=== PATIENT | female | born 1975 | race Caucasian/White ===

== ENCOUNTER 2018-01-21 20:31 | Observation (INO) | payer MEDICARE, MEDICAID ==
[~2018-01-21] VITALS: Ht 152.4 cm; Wt 73.0 kg
[2018-01-21 21:39] LABS: BASOPHILS 0.3 % (0-2); EOSINOPHILS 3.2 % (0-7); HEMATOCRIT 39.3 % (36.0-48.0); HEMOGLOBIN 13.6 g/dL (12-16); IMMATURE GRANULOCYTES 0.2 % (0-5); LYMPHOCYTES 27.8 % (15-50); MCH 27.6 pg (26.0-34.0); MCHC 34.6 g/dL (31.0-37.0); MCV 79.7 fL (80.0-100.0); MEAN PLATELET VOLUME 9.9 fL (7.4-10.4); MONOCYTES 5.4 % (2-11); NEUTROPHILS 63.1 % (40-80); PLATELET COUNT 188 10x3/uL (130-400); RBC 4.93 10x6/uL (4.00-5.40); RDW 14.5 % (11.5-14.5); WBC 6.7 10x3/uL (4.8-10.8)
[2018-01-21 21:56] LABS: ALBUMIN 3.6 g/dL (3.4-5.0); ALKALINE PHOSPHATASE 78 U/L (46-116); ALT (SGPT) 23 U/L (10-68); BILIRUBIN - TOTAL 0.21 mg/dL (0.2-1.3); CALC OSMOLALITY 276 mosm/kg (275-300); CALCIUM 9.4 mg/dL (8.5-10.1); CARBON DIOXIDE 25.1 mmol/L (21.0-32.0); CHLORIDE - SERUM 105 mmol/L (98-107); CREATININE - SERUM 0.8 mg/dL (0.6-1.3); GLUCOSE 100 mg/dL (74-106); POTASSIUM - SERUM 3.9 mmol/L (3.5-5.1); PROTEIN - SERUM 7.7 g/dL (6.4-8.2); SODIUM 139 mmol/L (136-145); UREA NITROGEN 11 mg/dL (7-18); eGFR NON AFRICAN AMERICAN 84 mL/min (90-120)
[2018-01-22] MEDS ORDERED: XANAX1 MG PO (04:19)
[2018-01-22] MEDS ORDERED: EFFEXOR25 MG PO (04:20)
[2018-01-22] MEDS ORDERED: DESERYL100 MG PO (04:20)
[2018-01-22] MEDS ORDERED: ADDERALL 10 MG10 MG PO (04:21)
[2018-01-22] MEDS ORDERED: CYCLOBENZAPRINE10 MG PO (04:21)
[2018-01-22] MEDS ORDERED: NEURONTIN 400400 MG PO (04:34)
[2018-01-22 04:55] VITALS: BP 103/63; Ht 152.4 cm; Wt 73.0 kg
[2018-01-22 05:50] VITALS: BP 103/63
[2018-01-22 07:29] LABS: CALC OSMOLALITY 278 mosm/kg (275-300); CALCIUM 8.7 mg/dL (8.5-10.1); CARBON DIOXIDE 23.2 mmol/L (21.0-32.0); CHLORIDE - SERUM 106 mmol/L (98-107); CREATININE - SERUM 0.8 mg/dL (0.6-1.3); GLUCOSE 93 mg/dL (74-106); POTASSIUM - SERUM 4.3 mmol/L (3.5-5.1); SODIUM 140 mmol/L (136-145); T4 THYROXIN - FREE 1.09 ng/dL (0.76-1.46); THYROID STIMULATING HORMONE 3.03 uIU/mL (0.36-3.74); UREA NITROGEN 12 mg/dL (7-18); eGFR NON AFRICAN AMERICAN 84 mL/min (90-120)
[2018-01-22 07:59] LABS: BASOPHILS 0.3 % (0-2); EOSINOPHILS 4.2 % (0-7); HEMATOCRIT 35.3 % (36.0-48.0); HEMOGLOBIN 12.2 g/dL (12-16); IMMATURE GRANULOCYTES 0.8 % (0-5); LYMPHOCYTES 35.7 % (15-50); MCH 27.4 pg (26.0-34.0); MCHC 34.6 g/dL (31.0-37.0); MCV 79.3 fL (80.0-100.0); MEAN PLATELET VOLUME 9.9 fL (7.4-10.4); MONOCYTES 7.2 % (2-11); NEUTROPHILS 51.8 % (40-80); PLATELET COUNT 161 10x3/uL (130-400); RBC 4.45 10x6/uL (4.00-5.40); RDW 14.5 % (11.5-14.5)
[2018-01-22 08:25] VITALS: BP 84/50
[2018-01-22 15:53] VITALS: BP 116/75
[2018-01-22] MEDS ORDERED: BACTRIM DS TABL1 TAB PO (18:07)
== END 2018-01-22 18:34 | disposition home or self-care (01) ==
LOC: D.ER 20:31 → D.EDHOLD 01-22 02:50 → OBSVTIME 01-22 02:50 → D.M2 01-22 03:22
PROVIDERS: Family Medicine
DX: R55 Syncope and collapse (principal); G62.9 Polyneuropathy, unspecified; K21.9 Gastro-esophageal reflux disease without esophagitis; E78.5 Hyperlipidemia, unspecified; E66.9 Obesity, unspecified; J32.9 Chronic sinusitis, unspecified; F41.9 Anxiety disorder, unspecified

== ENCOUNTER 2018-05-05 11:33 | Emergency (ER) | payer MEDICARE, MEDICAID ==
[~2018-05-05] VITALS: Ht 152.4 cm; Wt 72.7 kg
[~2018-05-05 11:33] MED LIST: ADDERALL 10 MG10 MG PO; BACTRIM DS TABL1 TAB PO; CYCLOBENZAPRINE10 MG PO; DESERYL100 MG PO; EFFEXOR25 MG PO; NEURONTIN 400400 MG PO; XANAX1 MG PO
[2018-05-05 11:39] VITALS: Ht 152.4 cm; Wt 72.7 kg
[2018-05-05] MEDS ORDERED: PERCOCET 7.5/321 TAB PO (11:41)
[2018-05-05 12:33] LABS: APPEARANCE SL CLDY (CLEAR); BILIRUBIN NEGATIVE (NEGATIVE); COLOR YELLOW (YELLOW); GLUCOSE NEGATIVE (NEGATIVE); KETONE NEGATIVE (NEGATIVE); NITRITE NEGATIVE (NEGATIVE); PROTEIN NEGATIVE (NEGATIVE); UROBILINOGEN NORMAL (NORMAL)
[2018-05-05 12:35] LABS: BACTERIA MANY /hpf (NONE SEEN); MUCUS <1+ /lpf (NONE SEEN); RED CELLS - URINE RARE /hpf (0-5)
[2018-05-05 13:19] LABS: BASOPHILS 0.2 % (0-2); HEMATOCRIT 43.4 % (36.0-48.0); IMMATURE GRANULOCYTES 0.2 % (0-5); LYMPHOCYTES 28.9 % (15-50); MCH 28.7 pg (26.0-34.0); MCHC 34.6 g/dL (31.0-37.0); MEAN PLATELET VOLUME 10.8 fL (7.4-10.4); MONOCYTES 6.7 % (2-11); PLATELET COUNT 220 10x3/uL (130-400); RBC 5.23 10x6/uL (4.00-5.40); RDW 13.2 % (11.5-14.5); WBC 8.1 10x3/uL (4.8-10.8)
[2018-05-05 13:33] LABS: ALKALINE PHOSPHATASE 69 U/L (46-116); ALT (SGPT) 31 U/L (10-68); AMYLASE - SERUM 45 U/L (25-115); BILIRUBIN - TOTAL 0.33 mg/dL (0.2-1.3); CALC OSMOLALITY 274 mosm/kg (275-300); CALCIUM 8.8 mg/dL (8.5-10.1); CARBON DIOXIDE 27.6 mmol/L (21.0-32.0); CHLORIDE - SERUM 102 mmol/L (98-107); CREATININE - SERUM 0.8 mg/dL (0.6-1.3); GLUCOSE 94 mg/dL (74-106); LIPASE 113 U/L (73-393); POTASSIUM - SERUM 4.4 mmol/L (3.5-5.1); PROTEIN - SERUM 7.9 g/dL (6.4-8.2); SODIUM 138 mmol/L (136-145); UREA NITROGEN 9 mg/dL (7-18); eGFR NON AFRICAN AMERICAN 84 mL/min (90-120)
[2018-05-05] MEDS ORDERED: ROBAXIN500 MG PO (17:05)
[2018-05-05] MEDS ORDERED: MACROBID100 MG PO (17:05)
[2018-05-05] MEDS ORDERED: PHENERGAN25 M1 PO (17:06)
[2018-05-05 17:37] VITALS: BP 123/79
[2018-05-05 18:20] LABS: UDS - AMPHET POSITIVE QUAL (NEGATIVE); UDS - BARB NEGATIVE QUAL (NEGATIVE); UDS - BENZO NEGATIVE QUAL (NEGATIVE); UDS - COCAINE NEGATIVE QUAL (NEGATIVE); UDS - OPIATE POSITIVE QUAL (NEGATIVE); UDS - PCP NEGATIVE QUAL (NEGATIVE); UDS - THC NEGATIVE QUAL (NEGATIVE)
== END 2018-05-05 17:39 | disposition home or self-care (01) ==
LOC: D.ER 11:33
PROVIDERS: Family Medicine
DX: N39.0 Urinary tract infection, site not specified (principal); K59.00 Constipation, unspecified; R33.9 Retention of urine, unspecified

== ENCOUNTER 2018-08-19 15:18 | Emergency (ER) | payer MEDICARE, MEDICAID ==
[~2018-08-19] VITALS: Ht 152.4 cm; Wt 78.2 kg
[~2018-08-19 15:18] MED LIST changes: +MACROBID100 MG PO; +PERCOCET 7.5/321 TAB PO; +PHENERGAN25 M1 PO; +ROBAXIN500 MG PO
[2018-08-19 15:22] VITALS: Ht 152.4 cm; Wt 78.2 kg
[2018-08-19] MEDS ORDERED: ZPAK PO (17:30)
[2018-08-19] MEDS ORDERED: ALBUTEROL SULF8.5 GM INH (17:30)
[2018-08-19 18:08] VITALS: BP 151/96
== END 2018-08-19 18:00 | disposition home or self-care (01) ==
LOC: D.ER 15:18
DX: J40 Bronchitis, not specified as acute or chronic (principal); R09.89 Other specified symptoms and signs involving the circulatory and respiratory systems

== ENCOUNTER 2018-08-25 15:54 | Emergency (ER) | payer MEDICARE, MEDICAID ==
[~2018-08-25] VITALS: Ht 152.4 cm; Wt 81.8 kg
[~2018-08-25 15:54] MED LIST changes: +ALBUTEROL SULF8.5 GM INH; +ZPAK PO
[2018-08-25 16:22] VITALS: Ht 152.4 cm; Wt 81.8 kg
[2018-08-25] MEDS ORDERED: DOXEPIN HCL75 MG PO (16:24)
[2018-08-25] MEDS ORDERED: BUSPAR 15 MG TA15 MG PO (16:24)
[2018-08-25] MEDS ORDERED: PROPRANOLOL HCL20 MG PO (16:24)
[2018-08-25] MEDS ORDERED: OXYCODONE-APAP1 T10 PO (16:25)
[2018-08-25] MEDS ORDERED: NEURONTIN 400400 MG PO (16:25)
[2018-08-25] MEDS ORDERED: BENADRYL50 MG PO (16:26)
[2018-08-25 17:30] LABS: BASOPHILS 0.9 % (0-2); EOSINOPHILS 2.5 % (0-7); HEMATOCRIT 37.7 % (36.0-48.0); IMMATURE GRANULOCYTES 0.4 % (0-5); LYMPHOCYTES 38.1 % (15-50); MCH 27.8 pg (26.0-34.0); MCHC 34.5 g/dL (31.0-37.0); MCV 80.7 fL (80.0-100.0); MEAN PLATELET VOLUME 9.6 fL (7.4-10.4); MONOCYTES 7.2 % (2-11); NEUTROPHILS 50.9 % (40-80); PLATELET COUNT 206 10x3/uL (130-400); RBC 4.67 10x6/uL (4.00-5.40); RDW 13.3 % (11.5-14.5); WBC 5.5 10x3/uL (4.8-10.8)
[2018-08-25 17:45] LABS: INR 0.99 (0.85-1.17); PROTIME 12.6 SECONDS (11.6-15.0)
[2018-08-25 17:46] LABS: D-DIMER-QUANTITATIVE 0.32 ug/mLFEU (0.20-0.54)
[2018-08-25 17:49] LABS: ALBUMIN 3.6 g/dL (3.4-5.0); ALKALINE PHOSPHATASE 49 U/L (46-116); ALT (SGPT) 30 U/L (10-68); CALC OSMOLALITY 274 mosm/kg (275-300); CALCIUM 8.7 mg/dL (8.5-10.1); CARBON DIOXIDE 22.2 mmol/L (21.0-32.0); CHLORIDE - SERUM 104 mmol/L (98-107); CREATININE - SERUM 0.7 mg/dL (0.6-1.3); GLUCOSE 105 mg/dL (74-106); POTASSIUM - SERUM 3.9 mmol/L (3.5-5.1); PROTEIN - SERUM 7.3 g/dL (6.4-8.2); SODIUM 138 mmol/L (136-145); UREA NITROGEN 9 mg/dL (7-18); eGFR NON AFRICAN AMERICAN > 90 mL/min (90-120)
[2018-08-25] MEDS ORDERED: TESSALON PERLE100 MG PO (20:19)
[2018-08-25] MEDS ORDERED: PHENERGAN25 M1 PO (20:19)
[2018-08-25 21:05] VITALS: BP 127/77
== END 2018-08-25 21:06 | disposition home or self-care (01) ==
LOC: D.ER 15:54
PROVIDERS: Family Medicine
DX: M79.662 Pain in left lower leg (principal); R05 Cough; R11.10 Vomiting, unspecified; Z86.711 Personal history of pulmonary embolism

== ENCOUNTER 2018-10-25 07:30 | Outpatient (CLI) | payer MEDICARE, MEDICAID ==
[~2018-10-25] VITALS: Ht 152.4 cm; Wt 82.3 kg
--- NOTE | ~2018-10-25 | HEMODYNAMI ---
PATIENT:AYANA NELSON MEDICAL RECORD: [id number] : 77 LOCATION:[facility] ADMISSION DATE: 10/25/18 Generatedon:10/25/20189:52 Patient name: AYANA NELSON Patient #: [id number] SSN : : 1975 Date of study: 10/25/2018 Page: Of Hemodynamic Procedure Report Patient Data Patient Demographics Procedure consent was obtained First Name: AYANA Gender: Female Last Name: LESLIE : 1975 [facility] Initial: GER Age: 43 year(s) Patient #: [id number] Race: Unknown Additional ID: [id number] Contact details Address: [address] [place] [address] State: [place] City: [place] Zip code: [address] Past Medical History Allergies Allergen Reaction Date Comments Reported Other allergy 10/25/2018 prednisone, compazine, reglan, toradol, zophran, normal saline Admission Admission Data Admission Date: 10/25/2018 Admission Time: 7:30 Height (in.): 61 BSA: 1.84 (m2) Height (cm.): 154.94 BMI: 35.33 (kg/m2) Weight (lbs.): 187 Weight (kg.): 84.82 Procedure Procedure Types Cath Procedure Diagnostic Procedure [facility] w/Coronaries Procedure Description Procedure Date Procedure Date: 10/25/2018 Procedure Start Time: 9:42 Procedure End Time: 9:52 Procedure Staff Name Function Mike Mas MD Performing Physician Azeb Spencer RN Nurse Mary Sparrow RT Scrub Rebeccamia Dowling RT Monitor Procedure Data Cath Procedure Fluoroscopy Diagnostic fluoroscopy Total fluoroscopy Time: 1.2 time: 1.2 min min Diagnostic fluoroscopy Total fluoroscopy dose: 313 dose: 313 mGy mGy Contrast Material Contrast Material Type Amount (ml) Isovue 300 72 Entry Location Entry Primary Successful Side Size Upsize Upsize Entry Closure Succes sful Closure Location (Fr) 1 (Fr) 2 (Fr) Remarks Device Remarks Femoral Right 5 Fr Exoseal artery Estimated blood loss: 5 ml Diagnostic catheters Device Type Used For End Catheter Placement MULTIPACK Pigtail 5 Fr LV Angiography catheter MULTIPACK Pigtail 5 Fr Abdominal catheter aortogram with runoff MULTIPACK JL 4.0 5Fr Left Coronary catheter Angiography MULTIPACK 3DRC 5Fr Right Coronary catheter Angiography Procedure Complications No complications Procedure Medications Medication Administration Route Dosage 0.9% NaCl I.V. 100 ml/hr Oxygen etCO2 Nasal cannula 2 l/min Lidocaine 2% added to field 20 Heparin Flush Bag added to field 2 bags (1000units/500ml NS) Versed I.V. 2 mg Fentanyl I.V. 100 mcg Versed I.V. 4 mg Fentanyl I.V. 100 mcg Versed I.V. 4 mg Fentanyl I.V. 100 mcg Versed I.V. 2 mg Hemodynamics Rest BSA: 1.84 (m2) O2 Consumption: Estimated: 205.71 (ml/min) O2 Consumption indexed : Estimated:111.8 (ml/min/m) Heart Rate: 99 (bpm) Snapshots Pre Cath Intra NCS Post Cath Vital Signs Time Heart Resp SPO2 etCO2 NIBP (mmHg) Rhythm Pain Sedation Rate (ipm) (%) (mmHg) Status Level (bpm) 9:08:05 96 22 97 25.1 127/88(108) NSR 0 (11) 10(A) , No pain 9:12:21 96 27 98 28.1 125/85(104) NSR 0 (11) 10(A) , No pain 9:16:41 93 12 98 28.1 121/76(101) NSR 0 (11) 10(A) , No pain 9:21:03 85 13 97 28.9 119/63(84) NSR 0 (11) 10(A) , No pain 9:25:19 86 12 98 31 104/66(81) NSR 0 (11) 10(A) , No pain 9:29:35 78 12 98 35.7 107/62(96) NSR 0 (11) 10(A) , No pain 9:33:45 83 11 97 25.8 119/80(96) NSR 0 (11) 10(A) , No pain 9:38:03 86 14 96 53.2 138/67(102) NSR 0 (11) 10(A) , No pain 9:42:28 96 18 96 44.9 124/72(105) NSR 0 (11) 10(A) , No pain 9:46:45 93 13 96 41 114/68(89) NSR 0 (11) 10(A) , No pain 9:51:45 92 7 15.9 Measuring NSR 0 (11) 10(A) , No pain Medications Time Medication Route Dose Verified Delivered Reason Notes Effe ctiveness by by 9:13:00 0.9% NaCl I.V. 100 Mike Azeb used for ml/hr Chace Sepncer player development manager 9:13:06 Oxygen etCO2 2 Mike Azeb used for Nasal l/min Chace Spencer procedure cannula RN 9:13:17 Lidocaine 2% added 20ml Mike Mike for local to vial Chace Mas MD anesthetic field 9:13:22 Heparin Flush added 2 Mike Mike used for Bag to bags Chace Mas MD procedure (1000units/500ml field NS) 9:38:47 Versed I.V. 2 mg Mike Azeb for Chace Spencer sedation RN 9:38:52 Fentanyl I.V. 100 Mike Azeb for mcg Chace Spencer sedation RN 9:41:57 Versed I.V. 4 mg Mike Azeb for Chace Spencer sedation RN 9:42:03 Fentanyl I.V. 100 Mike Azeb for mcg Chace Spencer sedation RN 9:45:13 Versed I.V. 4 mg Mike Azeb for Chace Spencer sedation RN 9:45:16 Fentanyl I.V. 100 Mike Azeb for mcg Cahce Spencer sedation RN 9:48:39 Versed I.V. 2 mg Mike Azeb for Chace Sepncer sedation outside sales manager Log Time Note 8:50:52 Signed procedure consent form obtained from patient. 8:50:53 Time tracking: Regular hours (M-F 7:00 - 5:00) 8:50:58 Plan of Care:Hemodynamics will remain stable., Cardiac rhythm will remain stable., Comfort level will be maintained., Respiratory function will remain adequate., Patient/ family verbilizes understanding of procedure., Procedure tolerated without complication., Recovers from procedure without complications.. 8:51:00 Diagnostic Cath status Elective 8:51:02 Azeb Spencer RN sent for patient. Start room use. 8:53:02 Patient Height : 61 inches 8:53:05 Patient Weight : 187 lbs 9:00:01 Patient received from Pre/Post Procedure Room to CCL 1 Alert and oriented. Tansferred to table in Supine position. 9:00:02 Warm blankets applied, and lamine hugger turned on for patient comfort. 9:00:02 Correct patient and procedure confirmed by team. 9:00:03 ECG and BP/O2 sat monitors applied to patient. 9:00:04 Full Disclosure recording started 9:06:57 Vital chart was started 9:10:04 Rhythm: sinus rhythm 9:10:08 Baseline sample Acquired. 9:10:25 H&P Date Dictated: 10/18/2018 Within 30 days and on chart., H&P Addendum completed by physician on day of procedure. (MUST COMPLETE FOR ALL OUTPATIENTS). 9:10:27 Pre-procedure instructions explained to patient. 9:10:27 Pre-op teaching completed and patient verbalized understanding. 9:10:30 Family in patients room. 9:10:31 Patient NPO since Midnight. 9:11:21 Patient allergic to Other allergyprednisone, compazine, reglan, toradol, zophran, normal saline 9:11:24 Is the patient allergic to Iodine/contrast media? No. 9:11:28 Is patient on blood thinner?No 9:11:29 Patient diabetic? No. 9:11:54 Previous problem with sedation/anesthesia? No ? 9:11:56 Snore? Yes 9:11:57 Sleep apnea? No 9:11:58 Deviated septum? No 9:11:58 Opens mouth fully? Yes 9:11:59 Sticks out tongue? Yes 9:12:02 Airway obstruction? No ? 9:12:04 Dentures? Yes in 9:12:17 Pre procedure: right dorsailis pedis pulse 2+ Normal; easily identifiable; not easily obliterated 9:12:20 Modified Alexis's test Ulnar > 7 seconds. 9:12:22 Patient pain scale 0/10 ?. 9:12:33 IV patent on arrival in right forearm with 0.9% NaCl at O. 9:12:35 Lab results completed and on chart. 9:12:39 Right groin area was prepped with chlora-prep and draped in sterile fashion 9:12:40 Alarms reviewed by R. N. 9:12:40 Sharps counted by scrub and verified by R.N. 9:12:44 Use device set Femoral Dx 9:12:45 ACIST Syringe (76488) opened to sterile field. 9:12:45 Bag Decanter (2002S) opened to sterile field. 9:12:46 Medline Cath Pack ([id number]) opened to sterile field. 9:12:46 DIAGNOSTIC WIRE .035 260cm J wire ([id number]) opened to sterile field. 9:12:47 ACIST Hand Control (14691) opened to sterile field. 9:12:47 ACIST Manifold (95590) opened to sterile field. 9:12:48 DIAGNOSTIC Multipack 5Fr catheter set ([id number]) opened to sterile field. 9:12:48 Tegaderm 4 x 4 (1626W) opened to sterile field. 9:12:49 SHEATH 5FR Marshall ([id number]) opened to sterile field. 9:13:00 0.9% NaCl 100 ml/hr I.V. was administered by Azeb Spencer RN; used for procedure; 9:13:06 Oxygen 2 l/min etCO2 Nasal cannula was administered by Azeb Spencer RN; used for procedure; 9:13:17 Lidocaine 2% 20ml vial added to field was administered by Mike Mas MD; for local anesthetic; 9:13:22 Heparin Flush Bag (1000units/500ml NS) 2 bags added to field was administered by Mike Mas MD; used for procedure; 9:15:16 Zero performed for pressure channel P1 9:37:46 Final Timeout: patient, procedure, and site verified with staff and physician. All members of the team are in agreement. 9:37:48 Right groin site verified by team. 9:37:52 Fire Safety Assessment: A--An alcohol-based skin anteseptic being used preoperatively., C--Open oxygen or nitrous oxide is being used., D--An ESU, laser, or fiber-optic light is being used. 9:37:54 Physical assessment completed. ASA score P 2 - A patient with mild systemic disease as per Mike Mas MD. 9:37:57 Sedation plan: IV Moderate Sedation Medication:Versed, Fentanyl 9:38:47 Versed 2 mg I.V. was administered by Azeb Spencer RN; for sedation; 9:38:52 Fentanyl 100 mcg I.V. was administered by Azeb Spencer RN; for sedation; 9:41:57 Versed 4 mg I.V. was administered by Azeb Spencer RN; for sedation; 9:42:03 Fentanyl 100 mcg I.V. was administered by Azeb Spencer RN; for sedation; 9:42:26 Procedure started. 9:42:45 Local anesthetic to right femoral artery with Lidocaine 2% by Mike Mas MD.INITIAL ACCESS ONLY 9:42:53 A 5 Fr sheath was inserted into the Right Femoral artery 9:43:49 A MULTIPACK Pigtail 5 Fr catheter was advanced over the wire and used for LV Angiography. 9:43:58 LV gram done using DAVID 9:44:02 Injector settings: Ml/sec: 10, Volume: 20, 9:44:22 EF : 65 % 9:44:34 A MULTIPACK Pigtail 5 Fr catheter was advanced over the wire and used for Abdominal aortogram with runoff. 9:44:54 Catheter removed. 9:45:13 Versed 4 mg I.V. was administered by Azeb Spencer RN; for sedation; 9:45:16 Fentanyl 100 mcg I.V. was administered by Azeb Spencer RN; for sedation; 9:45:33 A MULTIPACK JL 4.0 5Fr catheter was advanced over the wire and used for Left Coronary Angiography. 9:46:07 Catheter removed. 9:46:13 A MULTIPACK 3DRC 5Fr catheter was advanced over the wire and used for Right Coronary Angiography. 9:47:14 Catheter removed. 9:47:32 Sheath removed intact; hemostasis achieved with Exoseal to the Right Femoral artery. 9:47:33 Procedure ended.(Physican Out) 9:47:47 Fluoroscopy time 01.20 minutes. 9:47:51 Flurop Dose total: 313 9:47:51 Fluoroscopy dose: 313 mGy 9:47:58 Contrast amount:Isovue 300 72ml. 9:48:04 Sharps counted by scrub and verified by R.N. 9:48:07 Insertion/operative site no bleeding no hematoma. 9:48:10 Post-op/insertion site Right Femoral artery dressed using a 4 x 4 and Tegaderm. 9:48:13 Post right femoral artery:stable, clean and dry 9:48:39 Versed 2 mg I.V. was administered by Azeb Spencer RN; for sedation; 9:48:51 Post Procedure Pulses reassessed and unchanged 9:48:53 Post procedure rhythm: unchanged. 9:48:55 Estimated blood loss: 5 ml 9:48:57 Post procedure instruction explained to patient.Patient verbalizes understanding. 9:48:57 Patient needs reinforcement of post procedure teaching. 9:49:13 Procedure Complication : No complications 9:49:17 Report given to Pre/Post Procedure Room. 9:49:21 See physician's report for complete and final results. 9:49:46 EXOSEAL 5Fr (EX500) opened to sterile field. 9:49:57 Procedure and supply charges have been captured, reviewed, submitted and are correct. 9:51:58 Vital chart was stopped 9:52:02 Patient transfered to Pre/Post Procedure Room with Stretcher. 9:52:04 Procedure ended. 9:52:04 Full Disclosure recording stopped 9:52:14 End room use (Document Last) Device Usage Item Name Manufacture Quantity Catalog Hospital Part Current Minimal L ot# / Number Charge Number Stock Stock Serial# Code ACIST Acist 1 03102 799482 416807 078130 20 Syringe Medical (76889) Systems Inc Bag Microtek 1 958154 29261 516894 5 Decanter Medical Inc. () Medline Medline 1 [id number] 640679 90467 698202 5 Cath Pack ([id number]) DIAGNOSTIC St Blu 1 534126 010967 054776 453537 30 WIRE .035 260cm J wire (539919) ACIST Hand Acist 1 44801 424790 489216 829058 5 Control Medical (29214) Systems Inc ACIST Acist 1 85974 320454 909168 529503 5 Manifold Medical (34458) Systems Inc DIAGNOSTIC Cardinal 1 [id number] 932763 99943 169929 30 Multipack Health 5Fr catheter set (JY0549) Tegaderm 4 3M 1 1626W 457258 228737 701530 5 x 4 (1626W) SHEATH 5FR Terumo 1 [id number] 937275 621104 892035 5 Marshall (ITF201) MULTIPACK Cardinal 1 421034 5 Pigtail 5 Health Fr catheter MULTIPACK Cardinal 1 320083 5 JL 4.0 5Fr Health catheter MULTIPACK Cardinal 1 589829 5 3DRC 5Fr Health catheter EXOSEAL 5Fr Cardinal 1 EX500 851930 208167 728250 10 (EX500) Health Signature Audit Clifford Stage Time Signature Unsigned Intra-Procedure 10/25/2018 Rebecca 9:52:36 AM Counts RT(R) Signatures Monitor : Rebecca Signature : Counts RT Date : Time : [place] [address] [place] [address]
[~2018-10-25 07:30] MED LIST changes: +BENADRYL50 MG PO; +BUSPAR 15 MG TA15 MG PO; +DOXEPIN HCL75 MG PO; +OXYCODONE-APAP1 T10 PO; +PROPRANOLOL HCL20 MG PO; +TESSALON PERLE100 MG PO
[2018-10-25] MEDS ORDERED: PREVACID30 MG PO (07:48)
[2018-10-25] MEDS ORDERED: ZOCOR40 MG PO (07:48)
[2018-10-25] MEDS ORDERED: TAPAZOLE 10 MG10 MG PO (07:49)
[2018-10-25] MEDS ORDERED: NEXIUM20 MG PO (07:50)
[2018-10-25] MEDS ORDERED: CAMILA0.35 MG PO (07:51)
[2018-10-25 08:08] VITALS: BP 114/85; Ht 152.4 cm; Wt 82.3 kg
[2018-10-25 08:49] LABS: BASOPHILS 0.5 % (0-2); EOSINOPHILS 5.9 % (0-7); HEMATOCRIT 35.5 % (36.0-48.0); HEMOGLOBIN 12.2 g/dL (12-16); IMMATURE GRANULOCYTES 0.5 % (0-5); LYMPHOCYTES 24.5 % (15-50); MCH 28.4 pg (26.0-34.0); MCHC 34.4 g/dL (31.0-37.0); MCV 82.8 fL (80.0-100.0); MEAN PLATELET VOLUME 9.5 fL (7.4-10.4); MONOCYTES 8.1 % (2-11); NEUTROPHILS 60.5 % (40-80); PLATELET COUNT 215 10x3/uL (130-400); RBC 4.29 10x6/uL (4.00-5.40); WBC 5.9 10x3/uL (4.8-10.8)
[2018-10-25 08:54] LABS: ANION GAP 16.7 mmol/L (8-16); CALCIUM 8.7 mg/dL (8.5-10.1); CARBON DIOXIDE 25.2 mmol/L (21.0-32.0); CREATININE - SERUM 0.9 mg/dL (0.6-1.3); POTASSIUM - SERUM 3.9 mmol/L (3.5-5.1)
[2018-10-25 08:55] LABS: HCG SERUM NEGATIVE (NEGATIVE)
--- NOTE | 2018-10-25 10:00 | NUR ---
RECIEVED TO ROOM VIA STRETCHER FROM FIELD SALES REPRESENTATIVE WITH 5 FR EXOSEAL R/GROIN CDI NO BLEEDING OR HEMATOMA NOTED. BP 121/74 HR 93 CHEST PAIN IS DENIED. INSTRUCTED PATIENT TO KEEP HEAD FLAT ON PILLOW WITH RLE STRAIGHT
--- NOTE | 2018-10-25 10:16 | NUR ---
5 FR EXOSEAL R/GROIN CDI NO BLEEDING NOTED. AREA IS SOFT TO PALPATE WITH R/FOOT WARM TO TOUCH
--- NOTE | 2018-10-25 10:27 | NUR ---
PATIENT AWAKE AND ALERT WITH FAMILY AT BEDSIDE. VSS AND R/GROIN IS CDI. INSTRUCTED PATIENT TO KEEP HEAD FLAT ON PILLOW WITH RLE STRAIGHT
--- NOTE | 2018-10-25 10:48 | NUR ---
5 FR EXOSEAL R/GROIN REMAINS CDI WITH NO BLEEDING NOTED. PATIENT TOLERATING SIPS OF WATER WITH NAUSEA DENIED
--- NOTE | 2018-10-25 11:19 | NUR ---
RIGHT GROIN DRESSING C/D/I. NO S/S OF HEMATOMA NOTED. VSS. FAMILY AT BEDSIDE. CALL LIGHT WITHIN REACH.
--- NOTE | 2018-10-25 11:23 | NUR ---
PT'S HEAD OF BED INC TO 30 DEGREES. RIGHT GROIN DRESSING C/D/I. NO S/S OF HEMATOMA. PT SET UP WITH SANDWICH TRAY AND DRINK. DENIES NAUSEA.
--- NOTE | 2018-10-25 12:10 | NUR ---
BUSINESS EDUCATION TEACHER AT BEDSIDE FOR ECHOCARDIOGRAM.
--- NOTE | 2018-10-25 12:22 | NUR ---
LEFT AC PIV D/C'D WITH CATH TIP INTACT. TOLERATED WELL.
--- NOTE | 2018-10-25 12:26 | NUR ---
DISCUSSED DISCHARGE INSTRUCIONS WITH PT AND PT'S FAMILY. THEY VOICED UNDERSTANDING. RIGHT GROIN DRESSING C/D/I. NO S/S OF HEMATOMA NOTED.
--- NOTE | 2018-10-25 12:31 | NUR ---
PT TAKEN OUT TO VEHICLE BY WHEELCHAIR. NO S/S OF DISTRESS NOTED. ALL BELONGINGS AND PAPERWORK IN HAND.
--- NOTE | 2018-10-27 11:54 | OP ---
PATIENT NAME: AYANA NELSON MEDICAL RECORD: [id number] :[birth year] LOCATION:[facility] ADMISSION DATE: SURGEON: CARRILLO LO MD DATE OF OPERATION: 10/25/2018 PROCEDURES: 1. Left heart catheterization. 2. Selective coronary angiography. 3. Left ventriculogram. 4. Aortofemoral runoff. 5. Abdominal aortography. INDICATION: Chest pain compatible with angina, leg pain compatible with claudication. PROCEDURE IN DETAIL: After informed consent was obtained and after detailed description of risks, benefits as well as alternative therapies, the patient elected to proceed with angiogram and heart catheterization. The right femoral area was prepped and draped in normal sterile fashion. Right femoral artery was cannulated via modified Seldinger technique with placement of 5-Senegalese sheath. All catheters exchanged through this sheath. FINDINGS: Left ventriculogram was performed in standard 30-degree DAVID view, reveals good cardiac wall motion throughout all segments. Overall ejection fraction estimated 60% to 70%. SELECTIVE CORONARY ANGIOGRAPHY: Left main, left anterior descending, left circumflex, and right coronary artery are all smooth-walled vessels with no angiographic evidence of coronary artery disease. Abdominal aortography was performed. The catheter was pulled down for aortofemoral runoff. Abdominal aortography reveals no significant abdominal aortic disease. RIGHT LEG: A. Iliac: The common internal and external iliacs have no significant angiographic disease. B. Femoral system: The common, superficial and deep femoral have no significant angiographic disease. C. Popliteal and infrapopliteal vessels are widely patent with good 3-vessel runoff to the foot with no significant disease. LEFT LEG: A. Iliac: The common internal and external iliacs have no significant angiographic disease. B. Femoral system: The common, superficial and deep femoral have no significant angiographic disease. C. Popliteal and infrapopliteal vessels are widely patent with good 3-vessel runoff to the foot with no significant disease. OVERALL IMPRESSION: 1. No coronary disease is present. 2. No peripheral vascular disease is present. Symptomatology is not secondary to arteriovascular insufficiency. OPERATIVE REPORT [id number] AYANA NELSON TRANSINT:[id number] Voice Confirmation ID: [id number] DOCUMENT ID: [id number] cc: Apple Mendoza APRN, [employer]. CARRILLO LO MD at 2844 CC: [id number] DICTATION DATE: 10/25/18 0951 LABOR ARBITRATOR: 10/25/18 1013 DEP CLI 10/25/18 [facility] [address] [place] [address]
== END 2018-10-25 12:30 | disposition home or self-care (01) ==
LOC: D.CATH 07:30 → D.HCCARDIO 12:30 → D.CATH 12:30
PROVIDERS: ATTEND Internal Medicine Interventional Cardiology
DX: R07.89 Other chest pain (principal); M79.606 Pain in leg, unspecified; Z01.812 Encounter for preprocedural laboratory examination

== ENCOUNTER 2018-10-27 16:23 | Emergency (ER) | payer MEDICARE, MEDICAID ==
[~2018-10-27] VITALS: Ht 152.4 cm; Wt 81.8 kg
[~2018-10-27 16:23] MED LIST changes: +CAMILA0.35 MG PO; +NEXIUM20 MG PO; +PREVACID30 MG PO; +TAPAZOLE 10 MG10 MG PO; +ZOCOR40 MG PO
[2018-10-27 16:34] VITALS: Ht 152.4 cm; Wt 81.8 kg
[2018-10-27] MEDS ORDERED: NEXIUM20 MG PO (16:38)
[2018-10-27 17:20] LABS: BASOPHILS 0.9 % (0-2); EOSINOPHILS 6.3 % (0-7); HEMOGLOBIN 11.9 g/dL (12-16); IMMATURE GRANULOCYTES 0.4 % (0-5); LYMPHOCYTES 29.4 % (15-50); MCH 27.9 pg (26.0-34.0); MCV 82.2 fL (80.0-100.0); MEAN PLATELET VOLUME 9.4 fL (7.4-10.4); MONOCYTES 7.2 % (2-11); NEUTROPHILS 55.8 % (40-80); PLATELET COUNT 223 10x3/uL (130-400); RBC 4.26 10x6/uL (4.00-5.40); RDW 13.9 % (11.5-14.5); WBC 5.3 10x3/uL (4.8-10.8)
[2018-10-27 17:29] LABS: HCG SERUM NEGATIVE (NEGATIVE)
[2018-10-27 17:36] LABS: ALBUMIN 3.5 g/dL (3.4-5.0); ALKALINE PHOSPHATASE 68 U/L (46-116); ALT (SGPT) 40 U/L (10-68); BILIRUBIN - TOTAL 0.23 mg/dL (0.2-1.3); CALC OSMOLALITY 275 mosm/kg (275-300); CALCIUM 8.6 mg/dL (8.5-10.1); CARBON DIOXIDE 25.1 mmol/L (21.0-32.0); CHLORIDE - SERUM 102 mmol/L (98-107); CREATININE - SERUM 0.7 mg/dL (0.6-1.3); GLUCOSE 103 mg/dL (74-106); POTASSIUM - SERUM 3.9 mmol/L (3.5-5.1); SODIUM 139 mmol/L (136-145); UREA NITROGEN 7 mg/dL (7-18); eGFR NON AFRICAN AMERICAN > 90 mL/min (90-120)
[2018-10-27 19:45] LABS: HCG URINE NEGATIVE (NEGATIVE)
[2018-10-27 19:50] LABS: APPEARANCE CLEAR (CLEAR); BILIRUBIN NEGATIVE (NEGATIVE); COLOR STRAW (YELLOW); GLUCOSE NEGATIVE (NEGATIVE); KETONE NEGATIVE (NEGATIVE); NITRITE NEGATIVE (NEGATIVE); PROTEIN NEGATIVE (NEGATIVE); SPECIFIC GRAVITY 1.005 (1.005-1.020); UROBILINOGEN NORMAL (NORMAL)
[2018-10-27 19:57] LABS: BACTERIA FEW /hpf (NONE SEEN); EPITHELIAL CELLS 0-5 /hpf (0-5); RED CELLS - URINE 0-5 /hpf (0-5); WHITE CELLS - URINE OCC /hpf (0-5); YEAST <1+ /hpf (NONE SEEN)
[2018-10-28] MEDS ORDERED: PHENERGAN25 MG RC (00:09)
[2018-10-28 00:20] VITALS: BP 149/90
== END 2018-10-28 00:48 | disposition home or self-care (01) ==
LOC: D.ER 16:23
PROVIDERS: Family Medicine
DX: K57.90 Diverticulosis of intestine, part unspecified, without perforation or abscess without bleeding (principal)

== ENCOUNTER 2019-03-08 21:34 | Emergency (ER) | payer MEDICARE ==
[~2019-03-08] VITALS: Ht 152.4 cm; Wt 81.4 kg
[~2019-03-08 21:34] MED LIST changes: +PHENERGAN25 MG RC
[2019-03-08 21:42] VITALS: Ht 152.4 cm; Wt 81.4 kg
[2019-03-08 22:22] LABS: BASOPHILS 0.7 % (0-2); EOSINOPHILS 4.3 % (0-7); HEMOGLOBIN 13.5 g/dL (12-16); IMMATURE GRANULOCYTES 0.2 % (0-5); LYMPHOCYTES 33.9 % (15-50); MCH 26.4 pg (26.0-34.0); MCHC 34.6 g/dL (31.0-37.0); MCV 76.3 fL (80.0-100.0); MEAN PLATELET VOLUME 9.6 fL (7.4-10.4); MONOCYTES 6.8 % (2-11); NEUTROPHILS 54.1 % (40-80); PLATELET COUNT 191 10x3/uL (130-400); RBC 5.11 10x6/uL (4.00-5.40); WBC 5.6 10x3/uL (4.8-10.8)
[2019-03-08 22:37] LABS: ALBUMIN 4.1 g/dL (3.4-5.0); ANION GAP 12.4 mmol/L (8-16); BILIRUBIN - TOTAL 0.37 mg/dL (0.2-1.3); CALCIUM 9.4 mg/dL (8.5-10.1); CARBON DIOXIDE 28.2 mmol/L (21.0-32.0); CREATININE - SERUM 1.3 mg/dL (0.6-1.3); POTASSIUM - SERUM 3.6 mmol/L (3.5-5.1); PROTEIN - SERUM 8.6 g/dL (6.4-8.2)
[2019-03-08 23:15] LABS: MAGNESIUM - SERUM 1.7 mg/dL (1.8-2.4)
[2019-03-09 00:33] LABS: APPEARANCE CLEAR (CLEAR); COLOR YELLOW (YELLOW)
[2019-03-09 00:34] LABS: BILIRUBIN NEGATIVE (NEGATIVE); GLUCOSE NEGATIVE (NEGATIVE); KETONE NEGATIVE (NEGATIVE); NITRITE NEGATIVE (NEGATIVE); PROTEIN NEGATIVE (NEGATIVE); UROBILINOGEN NORMAL (NORMAL)
[2019-03-09 00:38] LABS: UDS - AMPHET POSITIVE QUAL (NEGATIVE); UDS - BARB NEGATIVE QUAL (NEGATIVE); UDS - BENZO POSITIVE QUAL (NEGATIVE); UDS - COCAINE NEGATIVE QUAL (NEGATIVE); UDS - OPIATE POSITIVE QUAL (NEGATIVE); UDS - PCP NEGATIVE QUAL (NEGATIVE); UDS - THC POSITIVE QUAL (NEGATIVE)
[2019-03-09] MEDS ORDERED: TYLENOL W/CODEI1 TAB PO (01:21)
[2019-03-09 01:40] VITALS: BP 126/92
== END 2019-03-09 01:41 | disposition home or self-care (01) ==
LOC: D.ER 21:34
PROVIDERS: Emergency Medicine
DX: R10.9 Unspecified abdominal pain (principal); R19.7 Diarrhea, unspecified; F19.10 Other psychoactive substance abuse, uncomplicated; E83.42 Hypomagnesemia; R11.10 Vomiting, unspecified

== ENCOUNTER 2019-04-11 13:48 | Emergency (ER) | payer MEDICARE, MEDICAID ==
[~2019-04-11] VITALS: Ht 152.4 cm; Wt 86.8 kg
[~2019-04-11 13:48] MED LIST changes: +TYLENOL W/CODEI1 TAB PO
[2019-04-11 13:53] VITALS: Ht 152.4 cm; Wt 86.8 kg
[2019-04-11] MEDS ORDERED: PERCOCET 10-321 EAC1 PO (13:58)
[2019-04-11] MEDS ORDERED: VALIUM10 MG PO (13:59)
[2019-04-11] MEDS ORDERED: NEXIUM20 MG PO (14:00)
[2019-04-11] MEDS ORDERED: SINEQUAN100 MG PO (14:02)
[2019-04-11 14:59] LABS: BASOPHILS 0.4 % (0-2); EOSINOPHILS 4.7 % (0-7); HEMATOCRIT 33.8 % (36.0-48.0); HEMOGLOBIN 11.6 g/dL (12-16); IMMATURE GRANULOCYTES 0.2 % (0-5); LYMPHOCYTES 23.4 % (15-50); MCH 26.8 pg (26.0-34.0); MCHC 34.3 g/dL (31.0-37.0); MCV 78.1 fL (80.0-100.0); MEAN PLATELET VOLUME 9.5 fL (7.4-10.4); MONOCYTES 8.2 % (2-11); NEUTROPHILS 63.1 % (40-80); PLATELET COUNT 191 10x3/uL (130-400); RBC 4.33 10x6/uL (4.00-5.40); RDW 15.5 % (11.5-14.5); WBC 5.4 10x3/uL (4.8-10.8)
[2019-04-11 15:17] LABS: ALBUMIN 3.4 g/dL (3.4-5.0); ALKALINE PHOSPHATASE 73 U/L (46-116); ALT (SGPT) 38 U/L (10-68); CALC OSMOLALITY 278 mosm/kg (275-300); CALCIUM 8.6 mg/dL (8.5-10.1); CHLORIDE - SERUM 106 mmol/L (98-107); CREATININE - SERUM 0.8 mg/dL (0.6-1.3); GLUCOSE 115 mg/dL (74-106); POTASSIUM - SERUM 4.3 mmol/L (3.5-5.1); PROTEIN - SERUM 7.6 g/dL (6.4-8.2); SODIUM 139 mmol/L (136-145); UREA NITROGEN 13 mg/dL (7-18); eGFR NON AFRICAN AMERICAN 83 mL/min (90-120)
[2019-04-11 15:21] LABS: AMYLASE - SERUM 38 U/L (25-115); LIPASE 196 U/L (73-393)
[2019-04-11 15:22] LABS: TROPONIN-I < 0.017 ng/mL (0.000-0.060)
[2019-04-11 17:52] LABS: APPEARANCE CLEAR (CLEAR); BILIRUBIN NEGATIVE (NEGATIVE); COLOR YELLOW (YELLOW); GLUCOSE NEGATIVE (NEGATIVE); KETONE NEGATIVE (NEGATIVE); NITRITE NEGATIVE (NEGATIVE); PROTEIN NEGATIVE (NEGATIVE); UROBILINOGEN NORMAL (NORMAL)
[2019-04-11 18:02] LABS: UDS - AMPHET NEGATIVE QUAL (NEGATIVE); UDS - BARB NEGATIVE QUAL (NEGATIVE); UDS - BENZO POSITIVE QUAL (NEGATIVE); UDS - COCAINE NEGATIVE QUAL (NEGATIVE); UDS - OPIATE POSITIVE QUAL (NEGATIVE); UDS - PCP NEGATIVE QUAL (NEGATIVE); UDS - THC NEGATIVE QUAL (NEGATIVE)
[2019-04-11] MEDS ORDERED: CHRONULAC30 ML PO (18:31)
[2019-04-11 19:04] VITALS: BP 128/86
== END 2019-04-11 19:06 | disposition home or self-care (01) ==
LOC: D.ER 13:48
PROVIDERS: Family Medicine
DX: K59.00 Constipation, unspecified (principal)

== ENCOUNTER 2019-04-19 13:33 | Emergency (ER) | payer MEDICARE, MEDICAID ==
[~2019-04-19] VITALS: Ht 152.4 cm; Wt 86.4 kg
[~2019-04-19 13:33] MED LIST changes: +CHRONULAC30 ML PO; +PERCOCET 10-321 EAC1 PO; +SINEQUAN100 MG PO; +VALIUM10 MG PO
[2019-04-19 13:40] VITALS: Ht 152.4 cm; Wt 86.4 kg
[2019-04-19 14:20] VITALS: BP 135/88
== END 2019-04-19 14:17 | disposition home or self-care (01) ==
LOC: D.ER 13:33
DX: T65.891A Toxic effect of other specified substances, accidental (unintentional), initial encounter (principal); Y92.019 Unspecified place in single-family (private) house as the place of occurrence of the external cause